=== PATIENT | female | born 2005 | race Hispanic/Latino ===

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

== ENCOUNTER 2024-06-19 09:24 | Inpatient (IN) | payer OTHER ==
[~2024-06-19] VITALS: Ht 160 cm; Wt 79.4 kg
[2024-06-19] MEDS ORDERED: LACTATED RINGER'S 1,000 ML IV SCH (10:15)
[2024-06-19] MEDS ORDERED: CALCIUM CARBONATE 500 MG CHEW PO PRN ×2 (10:15→18:30)
[2024-06-19] MEDS ORDERED: OXYTOCIN/DEXTROSE 5% 20 UNITS/100 ML BAG IV SCH (10:15)
[2024-06-19] MEDS ORDERED: MAGNESIUM HYDROXIDE/AL HYDROX 30 ML CUP PO PRN ×2 (10:15→18:30)
[2024-06-19] MEDS ORDERED: ondansetron HCL 4 MG/2 ML VIAL IV PRN (10:15)
[2024-06-19 10:45] LABS: HEMATOCRIT 36.7 % (35.0-50.0); HEMOGLOBIN 12.5 g/dL (12.0-18.0); MCH 32.1 (27-36); MCHC 34.1 g/dl (30-36); MCV 94.3 fl (81-99); RBC 3.89 M/ul (4.3-5.7); RDW 13.4 (10.5-15.0)
[2024-06-19 11:11] LABS: AMPHETAMINES, URINE NEGATIVE (NEGATIVE); BARBITURATES, URINE NEGATIVE (NEGATIVE); BENZODIAZEPINE, URINE NEGATIVE (NEGATIVE); BUPRENORPHINE, URINE NEGATIVE (NEGATIVE); CANNABINOID, URINE NEGATIVE (NEGATIVE); COCAINE, URINE NEGATIVE (NEGATIVE); ECSTASY, URINE NEGATIVE (NEGATIVE); FENTANYL, URINE NEGATIVE (NEGATIVE); METHADONE, URINE NEGATIVE (NEGATIVE); OPIATES, URINE NEGATIVE (NEGATIVE); OXYCODONE, URINE NEGATIVE (NEGATIVE); PHENCYCLIDINE, URINE NEGATIVE (NEGATIVE)
[2024-06-19 11:12] VITALS: BP 114/71
[2024-06-19 11:17] LABS: ABO O; ANTIBODY SCREEN NEGATIVE; RH POSITIVE
[2024-06-19] MEDS ORDERED: LACTATED RINGER'S 500 ML IV PRN (13:30)
[2024-06-19] MEDS ORDERED: ePHEDrine sulfate 5 MG/ML SYRINGE IV PRN (13:30)
[2024-06-19] MEDS ORDERED: ROPIVACAINE 0.2% 200 ML BAG EPIDURAL SCH (13:30)
[2024-06-19] MEDS ORDERED: LACTATED RINGER'S 2,000 ML IV ONE (13:30)
[2024-06-19 15:02] VITALS: BP 104/69
[2024-06-19] MEDS ORDERED: Ropivacaine HCl 0.5% 30 ML VIAL ONE (15:42)
[2024-06-19] MEDS ORDERED: dexmedeTOMIDine HCl 200 MCG/2 ML VIAL ONE (15:42)
--- NOTE | 2024-06-19 16:13 | PR ---
[facility] [address] [place], [place] [address] Signed Progress Notes IP Datetime Report Generated by MARIEL: 06/19/2024 16:13 PROGRESS NOTES: [id number] Impression: Normal Progression of Labor Procedures: Sterile Vag Exam Plan: Anesthesia Consult VITAL SIGNS: [id number] Vital Signs: Reviewed; Within Normal Limits EXAM: [id number] Dilatation: 8.0 Effacement: swollen Station: 0 Contractions: q 1 to 4 min MEMBRANES: [id number] Comments: Progressing but very painful. Will have anesthesia come back and reassess. FETUS A: [id number] FHR Baseline: 140 Variability: Moderate 6-25bpm Accelerations: 15X15 Decelerations: None FHR Category: Category I Presentation: Vertex Comments on Fetus A: no evidence of metabolic acidosis FETUS B: [id number] Signing Physician: Kathya Bryant MD Copies: ~ *Electronically Signed* 06/19/24 1613 KATHYA BRYANT MD PATIENT NAME: SMITH LANEMONA PROGRESS NOTE DATE OF : 04 PHYSICIAN: KATHYA BRYANT MD RPT #: [id number] REPORT IS CONFIDENTIAL AND NOT TO BE RELEASED WITHOUT AUTHORIZATION
[2024-06-19] MEDS ORDERED: fentaNYL citrate 100 MCG/2 ML VIAL ONE (16:24)
[2024-06-19] MEDS ORDERED: ACETAMINOPHEN 325 MG TAB PO PRN (18:30)
[2024-06-19] MEDS ORDERED: BENZOCAINE 60 ML AEROSOL TOP PRN (18:30)
[2024-06-19] MEDS ORDERED: IBUPROFEN 600 MG TAB PO PRN (18:30)
[2024-06-19] MEDS ORDERED: HYDROCORTISONE ACETATE 25 MG SUPP PR PRN (18:30)
[2024-06-19] MEDS ORDERED: OXYTOCIN/0.9 % SODIUM CHLORIDE 500 ML IV SCH (18:30)
[2024-06-19] MEDS ORDERED: LIDOCAINE 2% VISCOUS 6 ML SYR TOP ONE ×2 (18:30)
[2024-06-19] MEDS ORDERED: WITCH HAZEL/GLYCERIN 1 EA PAD TOP PRN (18:30)
[2024-06-19] MEDS ORDERED: MAGNESIUM HYDROXIDE 30 ML UDC PO PRN (18:30)
[2024-06-19] MEDS ORDERED: HYDROCODONE/ACETA 5/325 TAB PO PRN (18:30)
[2024-06-19] MEDS ORDERED: SENNOSIDES/DOCUSATE 1 EA TAB PO SCH (21:00)
[2024-06-20 05:37] LABS: HEMOGLOBIN 9.8 g/dL (12.0-18.0); MCH 32.3 (27-36); MCHC 33.9 g/dl (30-36); MCV 95.2 fl (81-99); RBC 3.04 M/ul (4.3-5.7); RDW 13.6 (10.5-15.0)
--- NOTE | 2024-06-20 09:17 | PR ---
[facility] [address] [place] [address] Signed PP Progress Notes Datetime Report Generated by MARIEL: 06/20/2024 09:17 SUBJECTIVE: [id number] Pain: Within Normal Limits Vital Signs: [id number] Vital Signs: Reviewed; Within Normal Limits Cardiovascular: Not Done Respiratory: Not Done Abdomen/Uterus: Abnormal Lochia: Normal Vulva/Perineum: Not Done Breasts: Not Done CVA Tenderness: Not Done Extremities: Normal Incision: Not Applicable Progress: Normal Exam Comments: Fundus firm, NT @ U-2. H/H 9.8/29.0, WBC 17.4, plat 173k IMPRESSION/PLAN/PROCEDURES: [id number] Impression: Normal Progression Plan: Continue Present Management Progress Notes: Doing well other than tired. Signing Physician: Kathya Bryant MD Copies: ~ *Electronically Signed* 06/20/24916 KATHYA BRYANT MD PATIENT NAME: MONA BOB PROGRESS NOTE DATE OF : 04 PHYSICIAN: KATHYA BRYANT MD RPT #: [id number] REPORT IS CONFIDENTIAL AND NOT TO BE RELEASED WITHOUT AUTHORIZATION
== END 2024-06-21 10:45 | disposition home or self-care (01) | DRG 807 ==
LOC: FBCO 09:24 → FBC 09:50
PROVIDERS: ADMIT Obstetrics & Gynecology; ATTEND Obstetrics & Gynecology
PROC: 10E0XZZ Delivery of Products of Conception, External Approach (ICD-10-PCS; principal; 2024-06-19)
PROC: 0KQM0ZZ Repair Perineum Muscle, Open Approach (ICD-10-PCS; 2024-06-19)
PROC: 3E0R3BZ Introduction of Anesthetic Agent into Spinal Canal, Percutaneous Approach (ICD-10-PCS; 2024-06-19)
PROC: 00HU33Z Insertion of Infusion Device into Spinal Canal, Percutaneous Approach (ICD-10-PCS; 2024-06-19)
PROC: 10907ZC Drainage of Amniotic Fluid, Therapeutic from Products of Conception, Via Natural or Artificial Opening (ICD-10-PCS; 2024-06-19)
DX: O70.1 Second degree perineal laceration during delivery (principal); Z37.0 Single live birth; Z3A.39 39 weeks gestation of pregnancy
CPT/HCPCS: 01960; 36415; 80307; 85027; 86850; 86900; 86901; A9270; J2590; J2795; J7121